=== PATIENT | female | born 1985 | race Caucasian/White ===

== ENCOUNTER → 2022-02-15 | Outpatient (CLI) | payer BC ==
--- NOTE | 2022-02-15 09:20 | MM ---
Reason for Exam: Clinical finding. Patient History: Menarche at age 12. First Full-Term at age 14. Hysterectomy at age 23. Paternal grandmother had breast cancer, age 54. Risk Values: Karla 5 year model risk: 0.3%. NCI Lifetime model risk: 6.8%. Tissue Density: The breast tissue is extremely dense which could obscure a lesion on mammography. Findings: Analyzed By CAD. There is an asymmetry demonstrated right breast centrally anterior depth palpable marker measuring up to 6 mm. No suspicious cluster of microcalcifications identified. Overall Assessment: Incomplete: need additional imaging evaluation, BI-RAD 0 Management: Diagnostic Breast Ultrasound of the right breast. A clinical breast exam by your physician is recommended on an annual basis and results should be correlated with mammographic findings. This exam should not preclude additional follow-up of suspicious palpable abnormalities. Results were given to the patient verbally at the time of exam. Electronically signed and approved by: Clarke Simons D.O.
--- NOTE | 2022-02-15 10:07 | USB ---
Patient History: Menarche at age 12. First Full-Term at age 14. Hysterectomy at age 23. Paternal grandmother had breast cancer, age 54. Risk Values: Karla 5 year model risk: 0.3%. NCI Lifetime model risk: 6.8%. Technique: Method: Targeted. Findings: The upper outer quadrant of the right breast, the axilla of the right breast and the retroareolar of the right breast were scanned. Targeted ultrasound of the right breast the patient's region of palpable abnormality at 9-12 o'clock was performed additional evaluation of the nipple and axilla. Simple appearing cyst measuring 0.4 x 0.3 x 0.4 cm with posterior acoustic enhancement and no internal color flow within the right breast at 10:00 3 cm from the nipple. Additional simple appearing cyst with posterior acoustic enhancement and no internal color flow in the right breast at 10:00 adjacent to the nipple measuring 0.8 x 0.9 x 0.4 cm. Overall Assessment: Benign, BI-RAD 2 Management: Screening Mammogram of both breasts in 1 year. A clinical breast exam by your physician is recommended on an annual basis and results should be correlated with mammographic findings. This exam should not preclude additional follow-up of suspicious palpable abnormalities. Results were given to the patient verbally at the time of exam. Electronically signed and approved by: Clarke Simons D.O.
== END | disposition home or self-care (01) ==
LOC: RADMAMWWP 08:48
PROVIDERS: ATTEND Family Medicine
DX: N63.10 Unspecified lump in the right breast, unspecified quadrant (principal); Z80.3 Family history of malignant neoplasm of breast
CPT/HCPCS: 77062; 77066